=== PATIENT | female | born 1990 | race Hispanic/Latino ===

== ENCOUNTER 2017-05-03 20:01 | Emergency (ER) | payer SELFPAY ==
[2017-05-03] MEDS ORDERED: Sodium Chloride 0.9% 1,000 ML IV STA (20:59)
--- NOTE | 2017-05-03 21:03 | ED PDOC ---
Arrival/HPI - General Chief Complaint: Abdominal Pain Time Seen by Provider: 05/03/17 20:58 Historian: Patient - History of Present Illness Narrative History of Present Illness (Text): 05/03/17 21:00 27 y/o female, no pmh, nkda, GP, nkda, c/o pelvic cramp and vaginal spotting on and off x 2 weeks. Pt. stated that she was 6 weeks ( confirmed through her own obgyn sonogram show she was 6 weeks intrauterine ) which she had elective which she received oral methyltrexate and then misoprostol intravaginally approx. 04/20/2017, been having pain and cramp with light spotting for the past 10-12 days which she passed chunk of tissue on the first few days, seen by her own obgyn Dr. Jono Rausch today and told this is normal. Pt. stated that she is here for the seconds opinions, no fever or chills, no night sweat, no dizziness, no palpitation, no rash, no other medical or psychological complaints. Past Medical History - Provider Review Nursing Documentation Reviewed: Yes - Psychiatric Hx Substance Use: No - Anesthesia Hx Anesthesia: No Family/Social History - Physician Review Nursing Documentation Reviewed: Yes Family/Social History: Unknown Family HX Smoking Status: Light Smoker < 10 Cigarettes Daily Hx Alcohol Use: No Hx Substance Use: No Allergies/Home Meds Allergies/Adverse Reactions: Allergies No Known Allergies Allergy (Verified 05/03/17 20:49) Review of Systems - Review of Systems Constitutional: absent: Fatigue, Fevers Eyes: absent: Vision Changes ENT: absent: Hearing Changes Respiratory: absent: SOB, Cough Cardiovascular: absent: Chest Pain Gastrointestinal: absent: Abdominal Pain, Nausea, Vomiting Genitourinary Female: Vaginal Discharge, Other (pelvic cramp) Musculoskeletal: absent: Arthralgias, Back Pain Skin: absent: Rash, Pruritis Psychiatric: absent: Anxiety, Depression, Suicidal Ideation Physical Exam Vital Signs Reviewed: Yes Vital Signs Temp Pulse Resp BP Pulse Ox 05/04/17 00:32 97.8 F 82 17 118/62 100 Temperature: Afebrile Blood Pressure: Normal Pulse: Regular Respiratory Rate: Normal Appearance: Positive for: Well-Appearing, Non-Toxic, Comfortable Pain Distress: None Mental Status: Positive for: Alert and Oriented X 3 - Systems Exam Head: Present: Atraumatic, Normocephalic Pupils: Present: PERRL Extroacular Muscles: Present: EOMI Conjunctiva: Present: Normal Mouth: Present: Moist Mucous Membranes Neck: Present: Normal Range of Motion Respiratory/Chest: Present: Clear to Auscultation, Good Air Exchange. No: Respiratory Distress, Accessory Muscle Use Cardiovascular: Present: Regular Rate and Rhythm, Normal S1, S2. No: Murmurs Abdomen: Present: Normal Bowel Sounds. 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 No: Vaginal Discharge, Vaginal Lesions, Adenexal Tenderness, Adenexal Mass, Cervical Motion Tendernes, Odor Back: Present: Normal Inspection Upper Extremity: Present: Normal Inspection. No: Cyanosis, Edema Lower Extremity: Present: Normal Inspection. No: Edema Neurological: Present: GCS=15, Speech Normal, Motor Func Grossly Intact, Gait Normal, Memory Normal Skin: Present: Warm, Dry, Normal Color. No: Rashes Psychiatric: Present: Alert, Oriented x 3, Normal Insight, Normal Concentration Medical Decision Making ED Course and Treatment: 05/03/17 21:05 -labs/ua -trans/pelvic sonogram -IVF/tylenol -Observe and reassess 05/04/17 00:04 -Urine hcg positive -Sonogram show: Uterus measures 10 x 4.8 x 6.7 CM. Endometrium measures 1.3 CM in thickness. Endometrial thickness is 1.3 CM. The margins are fairly well- defined. No definite retained products, however correlate clinically. No myometrial mass. -Labs are non-significant except wbc 11.1 and beta hcg 373 -UA show +UTI -Blood type A+ -Beta hcg 373 with no previous comparison -Paging obgyn cotton bag sewer Dr. Mitchell for consult. 05/04/17 00:26 -Pain resolved. -I spoke to the obgyn cotton bag sewer Dr. Mitchell, discussed about the labs/radiology results/blood type and case in detail, suggest to discharge home with her own obgyn with repeat beta hch in 7 days. -I discussed with the patient about the obgyn DR. Mitchell's consult recommendation, agreed to be discharged home and follow up with her own obgyn. -Discharge home with education on take tylenol at home as needed, bed rest, follow up with your own obgyn and pmd within 2 days, repeat beta hcg in 1 week as your beta hcg is 373 today, return to the ER for any new or worsening signs or symptoms. - Lab Interpretations Lab Results: 05/03/17 21:37 05/03/17 21:37 Lab Results 05/03/17 23:48: Urine Color Yellow, Urine Appearance Sl cloudy, Urine pH 6.0, Ur Specific [place] >= 1.030, Urine Protein Trace H, Urine Glucose (UA) Negative , Urine Ketones Negative, Urine Blood Large H, Urine Nitrate Negative, Urine Bilirubin Negative, Urine Urobilinogen 0.2, Ur Leukocyte Esterase Negative, Urine RBC 2 - 5, Urine WBC 5 - 10, Ur Epithelial Cells 6 - 8 05/03/17 22:59: Blood Type A POSITIVE, Antibody Screen Negative, BBK History Checked No verified bt 05/03/17 21:37: Beta HCG, Quant 373.35 H 05/03/17 21:37: WBC 11.1 H, RBC 3.96, Hgb 12.2, Hct 36.2, MCV 91.4, MCH 30.8, MCHC 33.7, RDW 12.4, Plt Count 272, MPV 9.6, Gran % 57.8, Lymph % (Auto) 29.7, [place] % (Auto) 7.3 H, Eos % (Auto) 4.8, Baso % (Auto) 0.4, Gran # 6.42, Lymph # 3.3, [place] # 0.8 H, Eos # 0.5, Baso # 0.04 05/03/17 21:37: Sodium 139, Potassium 4.0, Chloride 103, Carbon Dioxide 27, Anion Gap 14, BUN 15, Creatinine 0.7, Est GFR ( Amer) > 60, Est GFR (Non- Af Amer) > 60, Random Glucose 87, Calcium 9.6, Magnesium 2.2, Total Bilirubin 0.3, AST 25, ALT 27, Alkaline Phosphatase 40, Total Protein 7.6, Albumin 4.4, Globulin 3.2, Albumin/Globulin Ratio 1.4 05/03/17 21:37: PT 12.0, INR 1.10 H, APTT 26.2 - RAD Interpretation Radiology Orders: 05/03/17 20:59 TRANSVAGINAL [US] Stat FINDINGS: Uterus/cervix: Uterus measures 10 x 4.8 x 6.7 CM. Endometrium measures 1.3 CM in thickness. Endometrial thickness is 1.3 CM. The margins are fairly well-defined. No definite retained products, however correlate clinically. No myometrial mass. Right ovary: Right ovary measures 3.2 x 2.8 x 3.9 CM. Normal blood flow. Left ovary: Left ovary measures 3 x 2.1 x 2.6 CM. Normal blood flow. Free fluid: No free fluid. Bladder: Empty bladder which cannot be evaluated with this probe. IMPRESSION: 1. Endometrial thickness within normal limits at 1.3 CM. 2. No adnexal masses. 3. No free fluid. Thank you for allowing us to participate in the care of your patient. Dictated and Authenticated by: Sebastián Aguilar MD 05/04/2017 12:07 AM Eastern Time ([place] & [place]) Commercial Internship: Radiologist - Medication Orders Current Medication Orders: Discontinued Medications Acetaminophen (Tylenol 325mg Tab) 650 mg PO STAT STA Stop: 05/03/17 21:07 Sodium Chloride (Sodium Chloride 0.9%) 1,000 mls @ 999 mls/hr IV .Q1H1M STA Stop: 05/03/17 21:59 Last Admin: 05/03/17 21:49 Dose: 999 mls/hr eMAR Start Stop Document 05/03/17 21:49 IT (Rec: 05/03/17 21:49 IT [id number]) Intravenous Solution Start Date 05/03/17 Start Time 21:49 Nitrofurantoin Macrocrystals (Macrobid) 100 mg PO STAT STA Stop: 05/04/17 00:31 - PA / 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 Disposition/Present on Arrival - Present on Arrival Any Indicators Present on Arrival: No History of DVT/PE: No History of Uncontrolled Diabetes: No Urinary Catheter: No History of Decub. Ulcer: No History Surgical Site Infection Following: None - Disposition Have Diagnosis and Disposition been Completed?: Yes Diagnosis: Complete , UTI (urinary tract infection) Disposition: HOME/ ROUTINE Disposition Time: 00:29 Patient Plan: Discharge Patient Problems: Current Active Problems Problem Status Onset Complete Acute UTI (urinary tract infection) Acute Condition: IMPROVED Additional Instructions: -Discharge home with macrobid, education on take tylenol at home as needed, bed rest, follow up with your own obgyn and pmd within 2 days, repeat beta hcg in 1 week as your beta hcg is 373 today, return to the ER for any new or worsening signs or symptoms. Prescriptions: Nitrofurantoin Macrocrystals [Macrobid] 100 mg PO BID #14 cap Referrals: PCP,ASHLEY [Primary Care Provider] - Follow up with primary Justice Mitchell DO [Staff Provider] - Follow up with primary [facility] [place] [facility] [place] - Follow up with primary Forms: WORK NOTE
[2017-05-03 21:50] LABS: BASO # 0.04 K/mm3 (0.0-2.0); BASO % 0.4 % (0.0-3.0); EOS # 0.5 (0.0-0.7); EOS % 4.8 % (1.5-5.0); GRAN # 6.42 (1.4-6.5); GRAN % 57.8 % (50.0-68.0); HEMATOCRIT 36.2 % (36.0-48.0); LYMPH # 3.3 (1.2-3.4); LYMPH % 29.7 % (22.0-35.0); MEAN CELL VOLUME 91.4 fl (80.0-105.0); MEAN CORPUSCULAR HEMOGLOBIN 30.8 pg (25.0-35.0); MEAN CORPUSCULAR HGB CONC 33.7 g/dl (31.0-37.0); MEAN PLATELET VOLUME 9.6 fl (7.0-11.0); MONO # 0.8 (0.1-0.6); MONO % 7.3 % (1.0-6.0); RED CELL DISTRIBUTION WIDTH 12.4 % (11.5-14.5); WHITE BLOOD COUNT 11.1 10^3/ul (4.5-11.0)
[2017-05-03 22:01] LABS: ALB/GLOB RATIO 1.4 (1.1-1.8); ALKALINE PHOSPHATASE 40 U/L (38-126); ALT/SGPT 27 U/L (7-56); AST/SGOT 25 U/L (14-36); BILIRUBIN,TOTAL 0.3 mg/dL (0.2-1.3); BLOOD UREA NITROGEN 15 mg/dL (7-21); CALCIUM 9.6 mg/dL (8.4-10.5); CARBON DIOXIDE 27 mmol/L (21-33); CHLORIDE 103 mmol/L (98-107); GFR AFRICAN-AMERICAN > 60; GLUCOSE,RANDOM 87 mg/dL (70-110); MAGNESIUM 2.2 mg/dL (1.7-2.2); SODIUM 139 mmol/L (132-148); TOTAL PROTEIN 7.6 g/dL (5.8-8.3)
[2017-05-03 22:15] LABS: INR 1.1 (0.93-1.08); PARTIAL THROMBOPLASTIN TIME 26.2 Seconds (25.1-36.5)
[2017-05-03 23:54] LABS: URINE BILIRUBIN NEGATIVE (NEGATIVE); URINE BLOOD LARGE (NEGATIVE); URINE GLUCOSE (UA) NEGATIVE (NEGATIVE); URINE KETONE NEGATIVE (NEGATIVE); URINE LEUKOCYTE ESTERASE NEGATIVE Leu/uL (NEGATIVE); URINE PROTEIN TRACE mg/dL (<30 mg/dL); URINE UROBILINOGEN 0.2 E.U./dL (<1 E.U./dL)
[2017-05-03 23:57] LABS: URINE APPEARANCE SL CLOUDY (CLEAR); URINE COLOR YELLOW (YELLOW)
--- NOTE | 2017-05-04 00:07 | US ---
EXAM: US Pelvis, Transvaginal CLINICAL HISTORY: 27 years old, female; Pain; Pelvic pain; Additional info: x 2 weeks, C/O pain TECHNIQUE: Real-time transvaginal pelvic ultrasound (complete) with image documentation. Transvaginal imaging was used for better evaluation of the endometrium and adnexa. COMPARISON: No relevant prior studies available. FINDINGS: Uterus/cervix: Uterus measures 10 x 4.8 x 6.7 CM. Endometrium measures 1.3 CM in thickness. Endometrial thickness is 1.3 CM. The margins are fairly well-defined. No definite retained products, however correlate clinically. No myometrial mass. Right ovary: Right ovary measures 3.2 x 2.8 x 3.9 CM. Normal blood flow. Left ovary: Left ovary measures 3 x 2.1 x 2.6 CM. Normal blood flow. Free fluid: No free fluid. Bladder: Empty bladder which cannot be evaluated with this probe. IMPRESSION: 1. Endometrial thickness within normal limits at 1.3 CM. 2. No adnexal masses. 3. No free fluid.
[2017-05-04 00:33] VITALS: BP 118/62; PULSE 82; RESP 17; TEMP 97.8; O2SAT 100
== END 2017-05-04 01:00 | disposition home or self-care (01) ==
LOC: ED 20:01
DX: O03.9 Complete or unspecified spontaneous abortion without complication (principal)
CPT/HCPCS: 76830; 80053; 81001; 83735; 84702; 85025; 85610; 85730; 86850; 86900; 87086; 99283; J7040

== ENCOUNTER 2017-10-22 22:31 | Emergency (ER) | payer SELFPAY ==
[2017-10-22 22:54] VITALS: RESP 18; TEMP 97.8
--- NOTE | 2017-10-23 00:18 | ED PDOC ---
Arrival/HPI - General Chief Complaint: Abnormal Skin Integrity Time Seen by Provider: 10/23/17 00:00 Historian: Patient - History of Present Illness Narrative History of Present Illness (Text): 10/23/17 00:33 27yr old female presents today with rectal pain since yesterday. pt states pain started after having diarrhea from drinking the night prior. pt c/o a lump to the rectal area that is tender. pt denies abdominal pain. no n/v. no fever/ chills. no cp or sob. no dizziness or weakness. pt denies constipation. no urinary symptoms. no other complaints. no medications taken at home for pain. Symptom Onset: Sudden Symptom Course: Unchanged Quality: Aching Past Medical History - Provider Review Nursing Documentation Reviewed: Yes - Travel History Have you recently traveled outside [place] w/in the past 3 mons?: No - Tetanus Immunization Tetanus Immunization: Unknown - Psychiatric Hx Substance Use: No - Anesthesia Hx Anesthesia: No Family/Social History - Physician Review Nursing Documentation Reviewed: Yes Family/Social History: Unknown Family HX Smoking Status: Light Smoker < 10 Cigarettes Daily Hx Alcohol Use: No Hx Substance Use: No Allergies/Home Meds Allergies/Adverse Reactions: Allergies No Known Allergies Allergy (Verified 05/03/17 20:49) Review of Systems - Review of Systems Constitutional: absent: Fatigue, Fevers Respiratory: absent: SOB, Cough Cardiovascular: absent: Chest Pain, Palpitations Gastrointestinal: Diarrhea, Other (rectal pain, ). absent: Abdominal Pain, Constipation, Nausea, Vomiting Genitourinary Female: absent: Dysuria, Frequency, Hematuria Musculoskeletal: absent: Arthralgias, Back Pain, Neck Pain Skin: absent: Rash, Pruritis Neurological: absent: Headache, Dizziness Psychiatric: absent: Anxiety, Depression Physical Exam Vital Signs Reviewed: Yes Vital Signs Temp Pulse Resp BP Pulse Ox 10/22/17 22:49 97.8 F 76 18 112/78 98 Temperature: Afebrile Blood Pressure: Normal Pulse: Regular Respiratory Rate: Normal Appearance: Positive for: Well-Appearing, Non-Toxic, Comfortable Pain Distress: None Mental Status: Positive for: Alert and Oriented X 3 - Systems Exam Head: Present: Atraumatic Mouth: Present: Moist Mucous Membranes Neck: Present: Normal Range of Motion Respiratory/Chest: Present: Clear to Auscultation, Good Air Exchange. No: Respiratory Distress, Accessory Muscle Use Cardiovascular: Present: Regular Rate and Rhythm, Normal S1, S2. No: Murmurs Abdomen: No: Tenderness, Distention, Peritoneal Signs, Rebound, Guarding Rectal: Present: Rectal Tenderness, Hemorrhoids (there is a tender hemorrhoid noted at 3 o'clock position. non thrombosed. no surrounding erythema; no bleeding ), Other (chaparoned by dr. gale; ). No: Gross Blood, Fissures Upper Extremity: Present: Normal ROM Lower Extremity: Present: Normal ROM Neurological: Present: GCS=15, Speech Normal Skin: Present: Warm, Dry, Normal Color Psychiatric: Present: Alert, Oriented x 3 Medical Decision Making ED Course and Treatment: 10/23/17 00:40 27-year-old female with rectal pain since yesterday. pt was seen and evaluated by dr. gale; pt with non thrombosed hemorrhoid at 3 O'clock position. advised f/u with PMD and GI specialist. advised anusol and preparation H. advised immediate return if symptoms worsen, persist or if new symptoms develop; high fevers, increasing pain, worsening swelling, rectal bleeding or if any other concerning symptoms develop. Patient verbalizes understanding of discharge instructions and need for immediate followup. all aspects of this case were discussed the attending of record. Impression: Hemorrhoid increase fluids motrin every 6 hours as needed for pain anusol; apply twice daily to affected area; NOT for internal usage Preparation H; apply 3 times daily to affected area as needed for pain follow up with the GI specialist within the next 2 days. Follow up with primary care physician within the next 2 days. Return immediately if symptoms worsen persist or if new concerning symptoms develop: High fevers, increasing pain, difficulty with bowel movements or if any other concerning symptoms develop. - Medication Orders Current Medication Orders: Discontinued Medications Ibuprofen (Motrin Tab) 600 mg PO STAT STA Stop: 10/23/17 00:02 Disposition/Present on Arrival - Present on Arrival Any Indicators Present on Arrival: No History of DVT/PE: No History of Uncontrolled Diabetes: No Urinary Catheter: No History of Decub. Ulcer: No History Surgical Site Infection Following: None - Disposition Have Diagnosis and Disposition been Completed?: Yes Diagnosis: Hemorrhoid Disposition: HOME/ ROUTINE Disposition Time: 00:01 Patient Plan: Discharge Patient Problems: Current Active Problems Problem Status Onset Hemorrhoid Acute Condition: GOOD Discharge Instructions (ExitCare): Hemorrhoids (DC) Additional Instructions: increase fluids motrin every 6 hours as needed for pain anusol; apply twice daily to affected area; NOT for internal usage Preparation H; apply 3 times daily to affected area as needed for pain follow up with the GI specialist within the next 2 days. Follow up with primary care physician within the next 2 days. Return immediately if symptoms worsen persist or if new concerning symptoms develop: High fevers, increasing pain, difficulty with bowel movements or if any other concerning symptoms develop. Prescriptions: Hydrocortisone 2.5% (Rectal) [Anusol-HC] 1 appl TP BID #1 tube Ibuprofen [Motrin] 600 mg PO Q6H PRN #20 tab PRN Reason: pain/fever reduction Phenyleph/Pramoxin/Glycr/W.pet [Preparation H Cream] 26 gm RC BID #1 cream..g. Referrals: Nando Landaverde MD [Staff Provider] - Follow up with primary Esteban Stiles MD [Staff Provider] - Follow up with primary [facility] [place] [facility] [place] - Follow up with primary Colton Abrams MD [Staff Provider] - Follow up with primary Forms: [place] ([place]), WORK NOTE
[2017-10-23 01:43] VITALS: BP 115/82; PULSE 82; O2SAT 100
== END 2017-10-23 00:35 | disposition home or self-care (01) ==
LOC: ED 22:31
DX: K64.9 Unspecified hemorrhoids (principal)